=== PATIENT | male | born 1965 | race African-American/Black ===

== ENCOUNTER 2018-04-15 13:35 | Inpatient (IN) | payer OTHER ==
[2018-04-15] MEDS ORDERED: ASPIRIN 81 MG TABLET, CHEWABLE PO ONE ×2 (14:16→15:16)
--- NOTE | 2018-04-15 14:40 | RADIOLOGY REPORT (SQ) ---
EXAM DESCRIPTION: CHEST SINGLE VIEW COMPLETED DATE/TIME: 04/15/2018 2:31 pm REASON FOR STUDY: cp COMPARISON: 11/15/2014 EXAM PARAMETERS: NUMBER OF VIEWS: One view. TECHNIQUE: Single frontal radiographic view of the chest acquired. RADIATION DOSE: NA LIMITATIONS: None. FINDINGS: LUNGS AND PLEURA: No opacities, masses or pneumothorax. No pleural effusion. MEDIASTINUM AND HILAR STRUCTURES: No masses. Contour normal. HEART AND VASCULAR STRUCTURES: Heart normal in size. Normal vasculature. BONES: No acute findings. HARDWARE: None in the chest. OTHER: No other significant finding. IMPRESSION: NO ACUTE RADIOGRAPHIC FINDING IN THE CHEST. TECHNICAL DOCUMENTATION: JOB ID: [id number] [employer]- All Rights Reserved Reading location - IP/workstation name: [email or web address]
[2018-04-15 14:53] LABS: ABSOLUTE EOSINOPHILS # (AUTO) 0.3 10^3/uL (0.0-0.6); ABSOLUTE LYMPHOCYTES (AUTO) 2.6 10^3/uL (0.5-4.7); ABSOLUTE MONOCYTES (AUTO) 0.9 10^3/uL (0.1-1.4); ABSOLUTE NEUT (AUTO) 4.5 10^3/uL (1.7-8.2); BASOPHILS % (AUTO) 0.3 % (0-2); EOSINOPHILS % (AUTO) 3.2 % (0-6); HEMATOCRIT 41.4 % (37.9-51.0); HEMOGLOBIN 14.2 g/dL (13.5-17.0); LYMPHOCYTES % (AUTO) 31.2 % (13-45); MEAN CORPUSCULAR HGB CONC 34.4 g/dL (32.0-36.0); MEAN CORPUSCULAR VOLUME 84 fl (80-97); MONOCYTES % (AUTO) 11.2 % (3-13); PLATELET COUNT 377 10^3/uL (150-450); RED BLOOD COUNT 4.91 10^6/uL (4.35-5.55); RED CELL DISTRIBUTION WIDTH 14.1 % (11.5-14.0); SEGMENTED NEUTROPHILS % (AUTO) 54.1 % (42-78); TOTAL CELLS COUNTED % (AUTO) 100 %; WHITE BLOOD COUNT 8.4 10^3/uL (4.0-10.5)
[2018-04-15 15:10] LABS: ALANINE AMINOTRANSFERASE 35 U/L (21-72); ALBUMIN 4.6 g/dL (3.5-5.0); ALKALINE PHOSPHATASE 56 U/L (38-126); ANION GAP 15 (5-19); ASPARTATE AMINO TRANSFERASE 33 U/L (17-59); BILIRUBIN,DIRECT 0.2 mg/dL (0.0-0.4); BILIRUBIN,TOTAL 0.4 mg/dL (0.2-1.3); BLOOD UREA NITROGEN 10 mg/dL (7-20); CALCIUM 9.8 mg/dL (8.4-10.2); CARBON DIOXIDE 28 mmol/L (22-30); CHLORIDE 102 mmol/L (98-107); CREATINE KINASE 341 U/L (55-170); GLUCOSE 105 mg/dL (75-110); POTASSIUM 5.2 mmol/L (3.6-5.0); SODIUM 145.4 mmol/L (137-145); TOTAL PROTEIN 8.1 g/dL (6.3-8.2)
[2018-04-15 15:20] LABS: CREATINE KINASE MB 2.23 ng/mL (<4.55); TROPONIN I < 0.012 ng/mL
--- NOTE | 2018-04-15 15:30 | ER Document Report ---
ED General - General Chief Complaint: Chest Pain Stated Complaint: CHEST PAIN Time Seen by Provider: 04/15/18 15:06 Mode of Arrival: Ambulatory Information source: Patient Notes: 52-year-old male with hypertension, type 2 diabetes presents with complaint of chest discomfort, shortness of breath and diaphoresis. 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 Patient states the pain has been bearable, persistent. is at the bedside and states that they were out shopping earlier today when the patient turned toward her and asked her to check and see if he had a temperature. reports that the patient was diaphoretic. He does admit to having that pain at that time. Patient denies previous history of NH, atrial fibrillation. He does not smoke drink or do drugs. Patient's last stress test was 3 years ago which she reports was normal. Patient's drafting technician is Dr. Reddy TRAVEL OUTSIDE OF THE [place] IN LAST 30 DAYS: No - HPI Onset: Other Onset/Duration: Intermittent Quality of pain: Achy Associated symptoms: Chest pain, Shortness of breath, Sweating. denies: Chills , Nonproductive cough, Productive cough, Fever, Headache, Leg swelling, Nausea Exacerbated by: Denies Relieved by: Denies Similar symptoms previously: No Recently seen / treated by doctor: No - Related Data Allergies/Adverse Reactions: No Known Allergies Allergy (Verified 04/15/18 13:35) Past Medical History - General Information source: Patient - Social History Smoking Status: Never Smoker Chew tobacco use (# tins/day): No Frequency of alcohol use: None Drug Abuse: None Lives with: Spouse/Significant other Family History: Reviewed & Not Pertinent Patient has suicidal ideation: No Patient has homicidal ideation: No - Past Medical History Cardiac Medical History: Reports: Hx Hypertension Denies: Hx Coronary Artery Disease, Hx Heart Attack Pulmonary Medical History: Denies: Hx Asthma, Hx Bronchitis, Hx COPD, Hx Pneumonia Neurological Medical History: Denies: Hx Cerebrovascular Accident, Hx Seizures Endocrine Medical History: Reports: Hx Diabetes Mellitus Type 2 Renal/ Medical History: Reports: Hx Kidney Stones. Denies: Hx Peritoneal Dialysis Musculoskeletal Medical History: Denies Hx Arthritis Past Surgical History: Reports: Hx Abdominal Surgery - hernia repair, Hx Herniorrhaphy - Immunizations Immunizations up to date: No Hx Diphtheria, Pertussis, Tetanus Vaccination: Yes - Not positive Review of Systems - Review of Systems Notes: REVIEW OF SYSTEMS: CONSTITUTIONAL : Denies fever, chills. Denies recent illness. Denies weight loss, recent hospitalizations. EENT: Denies visual changes, eye pain. Denies sore throat, oral lesions, difficulty swallowing. CARDIOVASCULAR: Denies lower extremity edema. RESPIRATORY: Denies cough. wheezing. GASTROINTESTINAL: Denies abdominal pain or distention. Denies nausea, vomiting , or diarrhea. Denies blood in vomitus, stools, or per rectum. Denies black, tarry stools. Denies constipation. GENITOURINARY: Denies difficulty urinating, painful urination, frequency, blood in urine, testicular pain or penile discharge. MUSCULOSKELETAL: Denies back or neck pain or stiffness. Denies joint pain or swelling. SKIN: Denies rash, lesions or sores. HEMATOLOGIC : Denies easy bruising or bleeding. LYMPHATIC: Denies swollen glands. NEUROLOGICAL: Denies confusion or altered mental status. Denies loss of consciousness. Denies dizziness or lightheadedness. Denies headache. Denies weakness or paralysis. Denies problems difficulty with ambulation, slurred speech. Denies sensory loss, numbness, or tingling. Denies seizures. PSYCHIATRIC: Denies anxiety or stress. Denies depression, suicidal ideation, or Physical Exam - Vital signs Vitals: Temp Pulse Resp BP Pulse Ox 98.1 F 70 20 157/71 H 100 04/15/18 13:44 04/15/18 13:44 04/15/18 13:44 04/15/18 13:44 04/15/18 13:44 - Notes Notes: PHYSICAL EXAMINATION: GENERAL: Well-appearing, well-nourished and in no acute distress. HEAD: Atraumatic, normocephalic. EYES: Pupils equal round and reactive to light, extraocular movements intact, sclera anicteric, conjunctiva are normal. ENT: Nares patent, oropharynx clear without exudates. Moist mucous membranes. NECK: Normal range of motion, supple without lymphadenopathy LUNGS: Breath sounds clear to auscultation bilaterally and equal. No wheezes rales or rhonchi. HEART: Tachycardic, regular rhythm. ABDOMEN: Soft, nontender, nondistended abdomen. No guarding, no rebound. No masses appreciated. Musculoskeletal: Normal range of motion, no pitting or edema. No cyanosis. NEUROLOGICAL: Cranial nerves grossly intact. Normal speech, normal gait. Normal sensory, motor exams PSYCH: Normal mood, normal affect. SKIN: Warm, Dry, normal turgor, no rashes or lesions noted. Course - Re-evaluation Re-evalutation: Laboratory 04/15/18 04/15/18 04/15/18 14:23 14:23 14:23 WBC 8.4 RBC 4.91 Hgb 14.2 Hct 41.4 MCV 84 MCH 29.0 MCHC 34.4 RDW 14.1 H Plt Count 377 Seg Neutrophils % 54.1 Lymphocytes % 31.2 Monocytes % 11.2 Eosinophils % 3.2 Basophils % 0.3 Absolute Neutrophils 4.5 Absolute Lymphocytes 2.6 Absolute Monocytes 0.9 Absolute Eosinophils 0.3 Absolute Basophils 0.0 Sodium 145.4 H Potassium 5.2 H Chloride 102 Carbon Dioxide 28 Anion Gap 15 BUN 10 Creatinine 0.71 Est GFR ( Amer) > 60 Est GFR (Non-Af Amer) > 60 Glucose 105 Calcium 9.8 Magnesium Total Bilirubin 0.4 Direct Bilirubin 0.2 Neonat Total Bilirubin Not Reportable Neonat Direct Bilirubin Not Reportable Neonat Indirect Bili Not Reportable AST 33 ALT 35 Alkaline Phosphatase 56 Creatine Kinase 341 H CK-MB (CK-2) 2.23 Troponin I < 0.012 NT-Pro-B Natriuret Pep Total Protein 8.1 Albumin 4.6 04/15/18 04/15/18 14:23 14:23 WBC RBC Hgb Hct MCV MCH MCHC RDW Plt Count Seg Neutrophils % Lymphocytes % Monocytes % Eosinophils % Basophils % Absolute Neutrophils Absolute Lymphocytes Absolute Monocytes Absolute Eosinophils Absolute Basophils Sodium Potassium Chloride Carbon Dioxide Anion Gap BUN Creatinine Est GFR ( Amer) Est GFR (Non-Af Amer) Glucose Calcium Magnesium 1.9 Total Bilirubin Direct Bilirubin Neonat Total Bilirubin Neonat Direct Bilirubin Neonat Indirect Bili AST ALT Alkaline Phosphatase Creatine Kinase CK-MB (CK-2) Troponin I NT-Pro-B Natriuret Pep 681 Total Protein Albumin Chest X-Ray 04/15/18 14:16 IMPRESSION: NO ACUTE RADIOGRAPHIC FINDING IN THE CHEST. 04/15/18 16:39 52-year-old male with hypertension and diabetes presents with chest pain, palpitation and diaphoresis. Upon arrival vitals were reviewed. Patient has fluctuating heart rate that varies from 90-140. He is afebrile, mildly hypertensive. He is in no acute distress. Exam is significant for an irregular rhythm. EKG shows atrial fibrillation. This is a new diagnosis for the patient. CBC is without leukocytosis or anemia. Cardiac enzymes within normal limits. CMP shows mild elevation in his sodium and potassium. Beta- ivsh was not administered due to the patient's varying heart rate. Currently patient's heart rate is 97. Aspirin administered. Echocardiogram ordered and pending. Cardiology consult placed. Patient has been accepted for observation by the hospitalist. - Vital Signs Vital signs: Temp Pulse Resp BP Pulse Ox 98.1 F 70 20 157/71 H 97 04/15/18 13:44 04/15/18 13:44 04/15/18 13:44 04/15/18 13:44 04/15/18 14:20 - Laboratory Result Diagrams: 04/15/18 14:23 04/15/18 14:23 Laboratory results interpreted by me: 04/15/18 04/15/18 14:23 14:23 RDW 14.1 H Sodium 145.4 H Potassium 5.2 H Creatine Kinase 341 H - Diagnostic Test Radiology reviewed: Image reviewed, Reports reviewed - EKG Interpretation by Me Rate: Normal Rhythm: A.Fib When compared to previous EKG there are: Changes noted Discharge - Discharge Clinical Impression: New onset atrial fibrillation, Palpitations Hypertension Qualifiers: Hypertension type: unspecified Qualified Code(s): I10 - Essential (primary) hypertension Type 2 diabetes mellitus Qualifiers: Diabetes mellitus detention insulin use: without detention use Diabetes mellitus complication status: without complication Qualified Code(s): E11.9 - Type 2 diabetes mellitus without complications Condition: Good Disposition: ADMITTED OBSERVATION Admitting Provider: Hospitalist Unit Admitted: Telemetry
[2018-04-15] MEDS ORDERED: ACETAMINOPHEN 325 MG TABLET PO PRN (16:27)
[2018-04-15] MEDS ORDERED: GUAIFENESIN SYRP 200 MG/10 ML UDC PO PRN (16:27)
[2018-04-15 16:49] LABS: CHOLESTEROL 189.68 mg/dL (0-200); TRIGLYCERIDES 63 mg/dL (<150)
[2018-04-15 17:00] LABS: DIRECT LDL 138 mg/dL (<100)
[2018-04-15 17:06] LABS: FREE T3 4.35 pg/mL (2.77-5.27)
[2018-04-15 17:20] LABS: THYROID STIMULATING HORMONE 1.48 uIU/mL (0.47-4.68)
--- NOTE | 2018-04-15 17:29 | PDOC CONSULTATION ---
Consultation Consult Date: 04/15/18 Consult reason:: New onset atrial fibrillation History of Present Illness Admission Date/PCP: 04/15/18 16:21 ALMA ROSA SOLIMAN MD Patient complains of: Palpitations History of Present Illness: CED AYALA is a 52 year old male With past medical history of hypertension, diabetes mellitus on metformin therapy per patient, morbid obesity with sleep apnea on CPAP therapy comes with complaints of on and off chest discomfort with uneasy feeling in the chest over the last 2-3 days along with exertional shortness of breath. Patient denies any dizziness or passing out episodes but has felt like his heart is not beating regularly. He gives history of sleep apnea and admits to not always being compliant with CPAP use. He claims that recently they came back from a road trip to [facility] and over the last 3 days he has not felt good. Denies any swelling of legs or any fever or chills or any recent heat or cold intolerance. He denies any history of bleeding per rectum or black stools. He denies history of cigarette smoking or alcohol abuse. He is and lives with his . He denies any family history of early age coronary artery disease. He has seen Dr. Reddy in the past and had a stress test more than 3 years ago which was negative for ischemia. Past Medical History Cardiac Medical History: Reports: Hypertension, Other - Morbid obesity Denies: Coronary Artery Disease, Myocardial Infarction Pulmonary Medical History: Reports: Sleep Apnea Denies: Asthma, Bronchitis, Chronic Obstructive Pulmonary Disease (COPD), Pneumonia EENT Medical History: Reports: None Neurological Medical History: Reports: None Denies: Seizures Endocrine Medical History: Reports: Diabetes Mellitus Type 2 Renal/ Medical History: Reports: None Malignancy Medical History: Reports: None GI Medical History: Reports: None Musculoskeltal Medical History: Reports: None Denies: Arthritis Skin Medical History: Reports: None Psychiatric Medical History: Reports: None Traumatic Medical History: Reports: None Hematology: Reports: None Denies: Anemia Infectious Medical History: Reports: None Past Surgical History Past Surgical History: Reports: Herniorrhaphy Social History Lives with: Spouse/Significant other Smoking Status: Never Smoker Family History Family History: Reviewed & Not Pertinent Parental Family History Reviewed: Yes - No early age CAD Children Family History Reviewed: Unknown Sibling(s) Family History Reviewed.: Yes Medication/Allergy Home Medications: Aspirin [Aspirin 81 mg Chewable Tablet] 81 mg PO DAILY 12/16/13 Benazepril HCl [Lotensin 20 mg Tablet] 20 mg PO DAILY 11/15/14 Metformin HCl [Glucophage XR 500 mg Tablet] 500 mg PO DAILY 04/15/18 [place]-3 Fatty Acids/Fish Oil [Fish Oil 1,000 mg Capsule] 1 cap PO DAILY Allergies/Adverse Reactions: No Known Allergies Allergy (Verified 04/15/18 13:35) Review of Systems Constitutional: ABSENT: chills, fever(s), headache(s), weight gain, weight loss Eyes: ABSENT: visual disturbances Ears: ABSENT: hearing changes Cardiovascular: PRESENT: other - Chest discomfort. ABSENT: chest pain, dyspnea on exertion, edema, orthropnea, palpitations Respiratory: PRESENT: dyspnea. ABSENT: cough, hemoptysis Gastrointestinal: ABSENT: abdominal pain, constipation, diarrhea, hematemesis, hematochezia, nausea, vomiting Genitourinary: ABSENT: dysuria, hematuria Musculoskeletal: ABSENT: joint swelling Integumentary: PRESENT: diaphoresis. ABSENT: rash, wounds Neurological: ABSENT: abnormal gait, abnormal speech, confusion, dizziness, focal weakness, syncope Psychiatric: ABSENT: anxiety, depression, homidical ideation, suicidal ideation Endocrine: ABSENT: cold intolerance, heat intolerance, polydipsia, polyuria Hematologic/Lymphatic: ABSENT: easy bleeding, easy bruising Physical Exam Vital Signs: Temp Pulse Resp BP Pulse Ox 98 F 70 15 139/75 H 99 04/15/18 17:15 04/15/18 13:44 04/15/18 17:00 04/15/18 17:01 04/15/18 17:00 General appearance: PRESENT: no acute distress Head exam: PRESENT: atraumatic, normocephalic Cardiovascular exam: PRESENT: irregular rhythm, other - Obese chest wall Extremities exam: PRESENT: full ROM. ABSENT: calf tenderness, clubbing, pedal edema Musculoskeletal exam: PRESENT: ambulatory Neurological exam: PRESENT: alert, awake, oriented to person, oriented to place , oriented to time, oriented to situation, CN II-XII grossly intact. ABSENT: motor sensory deficit Psychiatric exam: PRESENT: appropriate affect, normal mood. ABSENT: homicidal ideation, suicidal ideation Results EKG Comments: Atrial fibrillation with intermittent PVCs. Impressions: Chest X-Ray 12/08/18 14:16 IMPRESSION: NO ACUTE RADIOGRAPHIC FINDING IN THE CHEST. Status: Image reviewed by me Assessment & Plan - Diagnosis (1) New onset atrial fibrillation Is this a current diagnosis for this admission?: Yes (2) Hypertension Qualifiers: Hypertension type: unspecified Qualified Code(s): I10 - Essential (primary ) hypertension Is this a current diagnosis for this admission?: Yes (3) Type 2 diabetes mellitus Qualifiers: Diabetes mellitus terminal press operator insulin use: without terminal press operator use Diabetes mellitus complication status: without complication Qualified Code(s): E11.9 - Type 2 diabetes mellitus without complications (4) Morbid obesity Is this a current diagnosis for this admission?: Yes (6) Chest discomfort Is this a current diagnosis for this admission?: Yes - Notes Notes: Patient appears euvolemic on exam with blood pressure well controlled at this time. We discussed etiopathogenesis, treatment modalities, complications and medical therapy use for atrial fibrillation in detail with the patient and his . At this point of time his chads 2 VASC score is 2 because of diabetes mellitus and hypertension and according to guidelines recommendation is for systemic anticoagulation and we have discussed options with the patient including warfarin therapy versus NOACs. Also patient has multiple risk factors for atherosclerotic cardiovascular disease and should have ischemia evaluation once acute coronary syndrome is ruled out by serial cardiac enzymes. We do recommend an echocardiogram to evaluate systolic and diastolic function. We discussed at length need for lifestyle modifications including weight loss and regular use of CPAP therapy. Agree with beta-vish for rate control and will recommend checking fasting lipid panel and statin therapy for risk factor reduction if indicated. Recommend institution of NOAC therapy and Dr. Reddy will take over cardiology workup for ischemia and management of atrial fibrillation from Tuesday onwards. We discussed risk/benefit of systemic anticoagulants with the patient and his . - Time Time Spent: 50 to 70 Minutes
[2018-04-15] MEDS: FAMOTIDINE 20 MG TABLET PO SCH (21:32)
[2018-04-15] MEDS: METOPROLOL TARTRATE 25 MG TABLET PO SCH (21:32)
[2018-04-15 22:55] LABS: APPEARANCE,URINE CLEAR; BILIRUBIN,URINE NEGATIVE (NEGATIVE); COLOR,URINE YELLOW; GLUCOSE, URINE NEGATIVE (NEGATIVE); KETONES,URINE NEGATIVE (NEGATIVE); LEUKOCYTE ESTERASE,URINE NEGATIVE (NEGATIVE); NITRITE,URINE NEGATIVE (NEGATIVE); PROTEIN,URINE NEGATIVE (NEGATIVE); URINE SPECIFIC GRAVITY 1.015
[2018-04-15 23:09] LABS: URINE AMPHETAMINES SCREEN NEGATIVE; URINE BARBITURATES SCREEN NEGATIVE; URINE BENZODIAZEPINES SCREEN NEGATIVE; URINE COCAINE SCREEN NEGATIVE; URINE MARIJUANA (THC) SCREEN NEGATIVE; URINE METHADONE SCREEN NEGATIVE; URINE PHENCYCLIDINE SCREEN NEGATIVE
[2018-04-16 05:15] LABS: HEMATOCRIT 40.1 % (37.9-51.0); HEMOGLOBIN 13.7 g/dL (13.5-17.0); MEAN CORPUSCULAR HEMOGLOBIN 28.5 pg (27.0-33.4); MEAN CORPUSCULAR VOLUME 84 fl (80-97); PLATELET COUNT 353 10^3/uL (150-450); RED CELL DISTRIBUTION WIDTH 14.3 % (11.5-14.0); WHITE BLOOD COUNT 8.7 10^3/uL (4.0-10.5)
[2018-04-16 05:34] LABS: ALANINE AMINOTRANSFERASE 33 U/L (21-72); ALKALINE PHOSPHATASE 50 U/L (38-126); ANION GAP 11 (5-19); ASPARTATE AMINO TRANSFERASE 27 U/L (17-59); BILIRUBIN,DIRECT 0.2 mg/dL (0.0-0.4); BILIRUBIN,TOTAL 0.5 mg/dL (0.2-1.3); BLOOD UREA NITROGEN 12 mg/dL (7-20); CALCIUM 9.4 mg/dL (8.4-10.2); CARBON DIOXIDE 28 mmol/L (22-30); CHLORIDE 101 mmol/L (98-107); GLUCOSE 99 mg/dL (75-110); POTASSIUM 5.1 mmol/L (3.6-5.0); SODIUM 140.3 mmol/L (137-145); TOTAL PROTEIN 7.2 g/dL (6.3-8.2)
--- NOTE | 2018-04-16 08:31 | XCELERA REPORT ---
[address] [address] Transthoracic Echocardiogram Report Name: CED AYALA Age: 52 yrs Gender: Male : 1965 Patient Status: Inpatient Patient Location: [address] [place] [address] Study Date: 04/15/2018 07:14 PM Reason For Study: New onset A. fib Ordering Physician: KATIE TO Performed By: Steven Ellis Interpretation Summary Study quality suboptimal. Lack of contrast ehnancement limits evaluation of wall motion, chambers and to rule out any intracardiac thrombus. LVEF appears normal at 55-60% by visual estimation. RV size and systolic function appears nromal. Doppler data inadequate for diatology evaluation. 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 Doppler data provided does not suggest any significant aortic stenosis. The aortic root is normal size. The inferior vena cava appeared small and collapsed with respiration (RAP 0-5 mmHg) MMode/2D Measurements & Calculations RVDd: 2.6 cm LVIDd: 5.9 cm FS: 25.7 % Ao root diam: 3.4 cm IVSd: 0.79 cm LVIDs: 4.4 cm EDV(Teich): 174.5 ml Ao root area: 8.9 cm2 LVPWd: 1.1 cm ESV(Teich): 87.6 ml LA dimension: 4.9 cm EF(Teich): 49.8 % LVOT diam: 2.1 cm LVOT area: 3.5 cm2 Doppler Measurements & Calculations MV E max nisa: MV P1/2t max nisa: Ao V2 max: LV V1 max P.4 cm/sec 89.2 cm/sec 151.3 cm/sec 5.9 mmHg MV A max nisa: MV P1/2t: 52.6 msec Ao max PG: LV V1 max: 49.9 cm/sec 9.2 mmHg 121.9 cm/sec MV E/A: 1.7 MVA(P1/2t): 4.2 cm2 MV dec slope: LESLEY(V,D): 2.8 cm2 496.7 cm/sec2 MV dec time: 0.18 sec PA V2 max: MV P1/2t-pr_phl: 107.0 cm/sec 52.6 msec PA max P.6 mmHg Right Ventricle A moderator band is seen in the right ventricle. The right ventricular systolic function is normal. Atria Right atrium not well visualized secondary to technical limitations. The left atrium is not well visualized secondary to technical limitations. Mitral Valve MV leaflets not well visualized but apprear to open well. Aortic Valve The aortic valve is not well visualized secondary to technical limitations. 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 There is a peak gradient of 9 mm of Hg. Tricuspid Valve The tricuspid valve is not well visualized secondary to technical limitations. Tricuspid regurgitation jet envelope not well defined to measure RV systolic pressure accurately. RVSP could not be estimated. Pulmonic Valve The pulmonic valve is not well visualized. Great Vessels The aortic root is normal size. The inferior vena cava appeared small and collapsed with respiration (RAP 0-5 mmHg). Effusions Pericardium not well visualized but no obvious pericardial effusion noted in available acoustic images. : KATIE TO Sanjay
--- NOTE | 2018-04-16 09:44 | PDOC PROGRESS REPORT ---
Subjective Progress Note for:: 04/16/18 Subjective:: Patient feels better today with no complaints of chest pain or dizziness. Reason For Visit: A-FIB Patient admitted last night with new onset atrial fibrillation. Patient seen at bedside today and denies any chest pain or palpitations or dizziness. Physical Exam Vital Signs: Temp Pulse Resp BP Pulse Ox 97.9 F 77 17 110/56 L 98 04/16/18 07:47 04/16/18 07:47 04/16/18 07:47 04/16/18 07:47 04/16/18 07:47 Intake & Output 04/15/18 04/16/18 04/17/18 06:59 06:59 06:59 Weight 139.4 kg General appearance: PRESENT: no acute distress Head exam: PRESENT: atraumatic, normocephalic Eye exam: PRESENT: conjunctiva pink, EOMI, PERRLA. ABSENT: scleral icterus Ear exam: PRESENT: normal external ear exam Mouth exam: PRESENT: moist, tongue midline Neck exam: ABSENT: carotid bruit, JVD, lymphadenopathy, thyromegaly Respiratory exam: PRESENT: clear to auscultation lazara. ABSENT: rales, rhonchi, wheezes Cardiovascular exam: PRESENT: irregular rhythm Pulses: PRESENT: normal dorsalis pedis pul GI/Abdominal exam: PRESENT: normal bowel sounds, soft. ABSENT: distended, guarding, mass, organolmegaly, rebound, tenderness Rectal exam: PRESENT: deferred Extremities exam: PRESENT: full ROM. ABSENT: calf tenderness, clubbing, pedal edema Musculoskeletal exam: PRESENT: ambulatory Neurological exam: PRESENT: alert, awake, oriented to person, oriented to place , oriented to time, oriented to situation, CN II-XII grossly intact. ABSENT: motor sensory deficit Psychiatric exam: PRESENT: appropriate affect, normal mood. ABSENT: homicidal ideation, suicidal ideation Skin exam: PRESENT: dry, intact, warm. ABSENT: cyanosis, rash Results Laboratory Results: 04/16/18 03:56 04/16/18 03:56 04/15/18 04/16/18 04/16/18 22:40 03:56 03:56 WBC 8.7 RBC 4.80 Hgb 13.7 Hct 40.1 MCV 84 MCH 28.5 MCHC 34.0 RDW 14.3 H Plt Count 353 Sodium 140.3 Potassium 5.1 H Chloride 101 Carbon Dioxide 28 Anion Gap 11 BUN 12 Creatinine 0.81 Est GFR ( Amer) > 60 Est GFR (Non-Af Amer) > 60 Glucose 99 Calcium 9.4 Total Bilirubin 0.5 AST 27 ALT 33 Alkaline Phosphatase 50 Total Protein 7.2 Albumin 4.0 Urine Color YELLOW Urine Appearance CLEAR Urine pH 7.0 Ur Specific [place] 1.015 Urine Protein NEGATIVE Urine Glucose (UA) NEGATIVE Urine Ketones NEGATIVE Urine Blood NEGATIVE Urine Nitrite NEGATIVE Ur Leukocyte Esterase NEGATIVE Urine WBC (Auto) 0 Urine RBC (Auto) 1 04/15/18 04/16/18 19:09 03:50 CK-MB (CK-2) 1.41 Troponin I < 0.012 Impressions: Chest X-Ray 04/15/18 14:16 IMPRESSION: NO ACUTE RADIOGRAPHIC FINDING IN THE CHEST. Assessment & Plan - Diagnosis (1) New onset atrial fibrillation Is this a current diagnosis for this admission?: Yes (2) Hypertension Qualifiers: Hypertension type: unspecified Qualified Code(s): I10 - Essential (primary ) hypertension Is this a current diagnosis for this admission?: Yes (3) Type 2 diabetes mellitus Qualifiers: Diabetes mellitus chief safety officer insulin use: without correction use Diabetes mellitus complication status: without complication Qualified Code(s): E11.9 - Type 2 diabetes mellitus without complications (4) Morbid obesity Is this a current diagnosis for this admission?: Yes (6) Chest discomfort Is this a current diagnosis for this admission?: Yes - Notes Notes: Reviewed labs, telemetry and echocardiogram. Patient with preserved LV ejection fraction but detailed evaluation limited due to suboptimal/poor caustic images. On his lab work patient has a hemoglobin A1c of 5.8 which is very well controlled and does not go in favor of his diagnosis of diabetes mellitus. In the absence of diabetes his chads 2 VASC score is 1 at which he can be on aspirin alone versus systemic anticoagulation. We again discussed the risks/benefits of either approach. On his telemetry he has stayed in atrial fibrillation all night with both tachyarrhythmias with heart rates going above 120 bpm and bradyarrhythmias with some sinus pauses up to 2.2 seconds. Some short runs of nonsustained ventricular tachycardia also noted which could also represent rate related aberrancy. Plan is for Lexiscan nuclear stress test tomorrow to rule out any inducible perfusion defects to suggest ischemia. Dr. Reddy is going to assume charge of patient's cardiac management from tomorrow onwards and patient will discuss long-term anticoagulation with him. Continue on beta-vish therapy for rate control at this time. Consider statin therapy for risk factor reduction. Patient urged to change lifestyle and try and lose weight. - Time Time with patient: 15-25 minutes
[2018-04-16] MEDS: ASPIRIN 325 MG TABLET PO SCH (10:40)
[2018-04-16] MEDS: FAMOTIDINE 20 MG TABLET PO SCH ×2 (10:40→21:40)
[2018-04-16] MEDS: ENOXAPARIN SODIUM INJ 40 MG/0.4 ML DISP.SYRIN SUBCUT SCH (10:40)
[2018-04-16] MEDS: METOPROLOL TARTRATE 25 MG TABLET PO SCH ×2 (10:40→21:40)
--- NOTE | 2018-04-16 10:46 | EKG REPORT ---
SEVERITY:- ABNORMAL ECG - ATRIAL FIBRILLATION VENTRICULAR TRIGEMINY ABNORMAL T, CONSIDER ISCHEMIA, DIFFUSE LEADS : Confirmed by: Joe Monahan 16-Apr-2018 10:44:13
--- NOTE | 2018-04-16 11:47 | HISTORY AND PHYSICAL E ---
History and Physical NAME: CED AYALA : 1965 AGE: 52Y ADMITTED: 04/15/2018 ROOM: 532 CHIEF COMPLAINT: Not feeling well. HISTORY OF PRESENT ILLNESS: The patient is a pleasant 52-year-old male who has a past medical history of hypertension. The patient is taking benazepril for hypertension. He has hypertension for many years. He came to the emergency room with a chief complaint of not feeling well, palpitation. He was found to have atrial fibrillation which is new onset and his heart rate is running 70-115. He denies any chest pain or difficulty breathing. There is no nausea or vomiting or headache. REVIEW OF SYSTEMS: GENERAL: Patient denies and fever or chills. HEAD: No headache. EYES: No discharge from the eyes or redness of the eyes. EARS: He has no tinnitus, no vertigo. NECK: There is no pain or difficulty swallowing. RESPIRATORY: No cough. No wheezing. No hemoptysis. CARDIOVASCULAR: As in history of present illness. GASTROINTESTINAL: No nausea, no vomiting, no diarrhea, no constipation. GENITOURINARY: No urgency, no frequency, no dysuria, no hematuria. ENDOCRINE: No polyuria, polyphagia, polydipsia. HEMATOLOGIC: No significant anemia. No easy bruising. NEUROLOGIC: No seizures. PSYCHIATRIC: No depression. PAST MEDICAL HISTORY: Hypertension. PAST SURGICAL HISTORY: The patient had a lithotripsy for a stone and a stent placement. He has a history of hernia repair. Oral surgery. SOCIAL HISTORY: Never smoker or drinks. HOME MEDICATIONS: 1. Benazepril 20 mg daily. 2. Aspirin 81 mg daily. 3. Metformin 500 mg twice a day. 4. Flomax. PHYSICAL EXAMINATION: GENERAL: Patient lying in bed. Not in distress. VITAL SIGNS: Blood pressure 159/71, temperature 98.1, respiratory 20, saturation 100%. HEENT: Normocephalic, atraumatic. Pupils equal, round, reactive to light and accommodation bilaterally. Extraocular movements intact. Ears: Tympanic membranes intact bilaterally. No discharge from the ears. No discharge from the nose. NECK: Supple. No increased JVD. No thyromegaly. No lymphadenopathy. CARDIOVASCULAR: Normal S1, S2. Irregularly irregular. RESPIRATORY: Lungs clear. ABDOMEN: Soft. MUSCULOSKELETAL: No edema. NEUROLOGICAL: Awake, alert. SKIN: No rash. LABORATORY DATA: Sodium 145, potassium 5.2, creatinine 0.7. White blood count 8.4, hemoglobin 14.2, hematocrit is 41. ASSESSMENT: 1. NEW ONSET ATRIAL FIBRILLATION. 2. HYPERTENSION. 3. OBSTRUCTIVE SLEEP APNEA. 4. MORBID OBESITY. 5. HYPERLIPIDEMIA. 6. DIABETES TYPE 2. 7. HISTORY OF KIDNEY STONE. PLAN: 1. Patient will be admitted for observation. 2. Will get a series of cardiac enzymes. 3. Cardiology consulted. 4. Dr. Pastor saw the patient in ER. 5. Will put him on aspirin, metoprolol 25 twice a day. 6. Continue his home medication, benazepril. 7. Probably a stress test on Tuesday by Dr. Reddy who is his digital forensics examiner. 8. DVT prophylaxis. 9. GI prophylaxis. 10. Will get hemoglobin A1c. 11. Metformin 500 mg twice a day. 12. Aspirin. DIET: Cardiac diet. CODE STATUS: He is a FULL CODE. DICTATING PHYSICIAN: VITALIY EASON M.D. [id number] PHY#: [id number] ID: [id number] JOB#: [id number] ACCT: [id number] cc: >
--- NOTE | 2018-04-16 11:54 | PDOC PROGRESS REPORT ---
Subjective Progress Note for:: 04/16/18 Subjective:: Patient is 50-year-old male who has a history of hypertension, questionable diabetes, obesity. He was admitted with a new onset atrial fibrillation. He was started on full dose anticoagulation and metoprol . Feeling better today no chest pain or short of breath Reason For Visit: A-FIB Physical Exam Vital Signs: Temp Pulse Resp BP Pulse Ox 97.9 F 77 17 110/56 L 98 04/16/18 07:47 04/16/18 07:47 04/16/18 07:47 04/16/18 07:47 04/16/18 07:47 Intake & Output 04/15/18 04/16/18 04/17/18 06:59 06:59 06:59 Weight 139.4 kg General appearance: PRESENT: no acute distress Head exam: PRESENT: atraumatic, normocephalic Eye exam: PRESENT: PERRLA Neck exam: ABSENT: JVD, lymphadenopathy Respiratory exam: PRESENT: symmetrical Cardiovascular exam: PRESENT: +S1, +S2 Extremities exam: PRESENT: +1 edema, +2 edema. ABSENT: pedal edema Neurological exam: PRESENT: alert, awake Results Laboratory Results: 04/16/18 03:56 04/16/18 03:56 04/15/18 04/16/18 04/16/18 22:40 03:56 03:56 WBC 8.7 RBC 4.80 Hgb 13.7 Hct 40.1 MCV 84 MCH 28.5 MCHC 34.0 RDW 14.3 H Plt Count 353 Sodium 140.3 Potassium 5.1 H Chloride 101 Carbon Dioxide 28 Anion Gap 11 BUN 12 Creatinine 0.81 Est GFR ( Amer) > 60 Est GFR (Non-Af Amer) > 60 Glucose 99 Calcium 9.4 Total Bilirubin 0.5 AST 27 ALT 33 Alkaline Phosphatase 50 Total Protein 7.2 Albumin 4.0 Urine Color YELLOW Urine Appearance CLEAR Urine pH 7.0 Ur Specific [place] 1.015 Urine Protein NEGATIVE Urine Glucose (UA) NEGATIVE Urine Ketones NEGATIVE Urine Blood NEGATIVE Urine Nitrite NEGATIVE Ur Leukocyte Esterase NEGATIVE Urine WBC (Auto) 0 Urine RBC (Auto) 1 04/15/18 04/16/18 19:09 03:50 CK-MB (CK-2) 1.41 Troponin I < 0.012 Impressions: Chest X-Ray 04/15/18 14:16 IMPRESSION: NO ACUTE RADIOGRAPHIC FINDING IN THE CHEST. Assessment & Plan - Diagnosis (1) Chest discomfort Is this a current diagnosis for this admission?: Yes Plan: Pelvic enzymes were negative patient is scheduled for cardiac stress test tomorrow (2) Hypertension Qualifiers: Hypertension type: unspecified Qualified Code(s): I10 - Essential (primary ) hypertension Is this a current diagnosis for this admission?: Yes Plan: Controlled on metoprolol (3) Morbid obesity Is this a current diagnosis for this admission?: Yes (4) New onset atrial fibrillation Is this a current diagnosis for this admission?: Yes Plan: Rate control with metoprolol, on full dose anti-coagulation with Lovenox scheduled for a stress test tomorrow. Dr. Ramirez see him tomorrow (5) Obstructive sleep apnea Is this a current diagnosis for this admission?: Yes Plan: CPAP on night (7) Type 2 diabetes mellitus Qualifiers: Diabetes mellitus gravity prospecting operator insulin use: without gravity prospecting operator use Diabetes mellitus complication status: without complication Qualified Code(s): E11.9 - Type 2 diabetes mellitus without complications Is this a current diagnosis for this admission?: Yes Plan: Metformin is A1c 5.8
--- NOTE | 2018-04-17 11:22 | Physician Advisory Note ---
Physician Advisor ProgressNote .: Pursuant to the plan for [facility], I have reviewed the medical record for this patient. Physician Advisor Statement: Please consider documenting, if you agree: 1. "CP/SOB, suspect due to " (Afib/tachyarrhythmia? angina/CAD? ...) 2. "obesity w/BMI 42.9" (we have to personally state the BMI w/this dx now) STatus: 52yo w/[employer], HTN, obesity w/BMI 42.9, in w/new onset Afib & CP/SOB/diaphoresis. Serial cardiac enzymes now all neg, so can have stress testing today. After first night of care/monitoring, pt still in Afib, w /episodes tachyarrhythmias & bradyarrhythmias, & sinus pauses, & short runs nonsustained VTach (vs rate related aberrancy), kept a 2nd night w/close monitoring & ongoing eval. Needing stress testing today to look for inducible perfusion defects, made more likely given the CP/SOB/diaphoresis that occurred w /Afib just prior to arrival. Monitoring rates/rhythms on BB tx. - In this case, will agree w/Inpt status. CK
[2018-04-17] MEDS: METOPROLOL TARTRATE 25 MG TABLET PO SCH ×2 (11:44→21:22)
[2018-04-17] MEDS: ASPIRIN 325 MG TABLET PO SCH (11:44)
[2018-04-17] MEDS: FAMOTIDINE 20 MG TABLET PO SCH ×2 (11:44→21:22)
[2018-04-17] MEDS: ENOXAPARIN SODIUM INJ 40 MG/0.4 ML DISP.SYRIN SUBCUT SCH (11:45)
[2018-04-17] MEDS ORDERED: DEXTROSE 50%-WATER 25 GM/50 ML DISP.SYRIN IV PRN ×2 (14:25)
[2018-04-17] MEDS ORDERED: INSULIN REG, HUMAN 100 UNIT/ML 3 ML VIAL (PYX) SUBCUT PRN (14:25)
[2018-04-17] MEDS ORDERED: GLUCAGON,HUMAN RECOMB 1 MG INJ IM PRN (14:25)
[2018-04-17] MEDS ORDERED: DEXTROSE 40% GEL 15 GM TUBE PO PRN ×2 (14:25)
--- NOTE | 2018-04-17 14:26 | PDOC PROGRESS REPORT ---
Subjective Progress Note for:: 04/17/18 Subjective:: 04/17/2000 [id number] male admitted for new onset atrial fibrillation. He went for the stress test today. Waiting for the results today. No acute events in the last 24 hours. Reason For Visit: A-FIB Physical Exam Vital Signs: Temp Pulse Resp BP Pulse Ox 98.1 F 82 18 118/54 L 100 04/17/18 08:39 04/17/18 08:39 04/17/18 08:39 04/17/18 08:39 04/17/18 08:39 Intake & Output 04/16/18 04/17/18 04/18/18 06:59 06:59 06:59 Intake Total 1284 Balance 1284 Weight 139.4 kg 139.5 kg 139.5 kg General appearance: PRESENT: no acute distress Head exam: PRESENT: atraumatic Eye exam: PRESENT: PERRLA Mouth exam: PRESENT: moist Neck exam: ABSENT: carotid bruit, JVD, lymphadenopathy, thyromegaly Respiratory exam: PRESENT: clear to auscultation lazara. ABSENT: rales, rhonchi, wheezes Cardiovascular exam: PRESENT: RRR. ABSENT: diastolic murmur, rubs, systolic murmur GI/Abdominal exam: PRESENT: normal bowel sounds, soft. ABSENT: distended, guarding, mass, organolmegaly, rebound, tenderness Neurological exam: PRESENT: alert, awake, oriented to person, oriented to place , oriented to time, oriented to situation, CN II-XII grossly intact. ABSENT: motor sensory deficit Results Laboratory Results: 04/16/18 03:56 04/16/18 03:56 04/15/18 04/16/18 04/17/18 19:09 03:50 06:43 CK-MB (CK-2) 1.41 Troponin I < 0.012 < 0.012 Impressions: Chest X-Ray 04/15/18 14:16 IMPRESSION: NO ACUTE RADIOGRAPHIC FINDING IN THE CHEST. Assessment & Plan - Diagnosis (1) New onset atrial fibrillation Is this a current diagnosis for this admission?: Yes Plan: 04/17/2018 70-year-old male with came with new onset atrial fibrillation evaluated by the [facility] attendant Dr. Morataya recommendation is aspirin all along with beta-blockers will be sufficient enough at this time. She underwent for the stress test today. Since heart rate is 82 to today he is on metoprolol and also on Lovenox,, and also on aspirin. (2) Hypertension Qualifiers: Hypertension type: unspecified Qualified Code(s): I10 - Essential (primary ) hypertension Is this a current diagnosis for this admission?: Yes Plan: 04/17/2018 blood pressure today is 118/54. Stable. Patient is on metoprolol 25 mg p.o. every 12 hours. (3) Morbid obesity Is this a current diagnosis for this admission?: Yes Plan: 04/17/2018-patient's BMI is 43. Diet exercise weight loss was advised. Dietary consult was requested. (4) Obstructive sleep apnea Is this a current diagnosis for this admission?: Yes Plan: 04/17/2018 patient uses CPAP at night for obstructive sleep apnea no complaints during the hospital stay. (5) Type 2 diabetes mellitus Qualifiers: Diabetes mellitus snf insulin use: without manager architectural use Diabetes mellitus complication status: without complication Qualified Code(s): E11.9 - Type 2 diabetes mellitus without complications Is this a current diagnosis for this admission?: Yes Plan: 04/17/2018 patient's hemoglobin A1c is 5.8 he was on metformin at home which was on hold. It is on insulin sliding scale. - Time Time Spent with patient: 15-24 minutes Medications reviewed and adjusted accordingly: Yes Anticipated discharge: Home
[2018-04-17] MEDS ORDERED: REGADENOSON INJ 0.4 MG/5 ML DISP.SYRIN IV ONE (14:43)
--- NOTE | 2018-04-17 17:16 | DRAGON STRESS TEST REPORT ---
Intravenous Lexiscan Cardiolite stress test using single photon emmision computerized tomography. Date of procedure: 04/17/2018.Ordering Provider:Lori Casper.Patient's status: Inpatient. Indication: Chest pain. Coronary risk factors: Age, hypertension, and diabetes mellitus Resting EKG: Atrial fibrillation with controlled ventricular response. LVH by voltage. Diffuse nonspecific ST-T changes Stress EKG: No changes of ischemia. The patient no chest pain or discomfort, and there were no arrhythmias seen. Reason for termination: Protocol. Conclusions: Normal EKG and hemodynamic response to IV Lexiscan. Nuclear data: At rest the patient was given 15.67 millicuries of technetium 99m sestamibi injected intravenously. As per protocol rest non gated SPECT images were obtained. Subsequently the patient was given intravenous Lexiscan at a dose of 0.4 mg in 5 mL intravenously, followed by flush with normal saline. Subsequently the stress dose of 45.6 millicuries of technetium 99m sestamibi was injected intravenously. As per protocol stress gated images were obtained. Nuclear interpretation: Review of images showed that all segments of the myocardium had normal perfusion at rest, and normal perfusion post stress with IV Lexiscan. All segments of the myocardium had normal motion, contraction, and thickening by gated study. T. I D. ratio was normal at 1.23. But visually the T ID ratio seems to be much lower, and there is no transient ischemic LV dilatation. Computer read rest, and stress left ventricular ejection fraction were 56 %, and 50 %, respectively. Visually both the stress and rest ejection fractions were normal , and greater than 55%. Conclusion: 1. There is no scintigraphic evidence of Lexiscan induced myocardial ischemia. 2. There is no scintigraphic evidence of myocardial infarction/scar. Recommendations: Aggressive risk factor modification, and treating the underlying co- morbidities. MTDD
[2018-04-17] MEDS: APIXABAN 5 MG TABLET PO SCH (17:19)
--- NOTE | 2018-04-17 22:03 | Progress Note ---
Provider Note Provider Note: CARDIOLOGY PROGRESS NOTES by Dr. Stacey Reddy on 04/17/2018. OBJECTIVE: The patient continues to be in atrial fibrillation with a controlled ventricular response. He denies any further chest pain. There is no shortness of breath. There is no PND orthopnea. He wears CPAP for his sleep apnea. There is no leg edema. There is no pauses or ventricular arrhythmias on the monitor monitor. The patient's corrected chads vas 6 2 score is 1, and hence would benefit from anticoagulation. He has no contraindications for chronic anticoagulation therapy. Note that the patient's hemoglobin A1c is 5.8. He states that he is not a diabetic, although at home he was on Metformin, which he states he has not been taking. The patient underwent a IV Lexiscan Cardiolite stress test today. See report below. PHYSICAL EXAMINATION: The patient is morbidly obese. He is well-groomed. He is not in any acute distress. Selected Entries 04/17/18 16:52 Temperature 97.6 F Temperature Oral Source Pulse Rate 52 L Respiratory 18 Rate Blood Pressure 114/80 Blood Pressure 91 Mean BP Location Right Arm BP Position Supine O2 Sat by Pulse 99 Oximetry Oxygen Delivery Room Air Method HEAD: Is atraumatic. Normocephalic. EYES: Pupils are equal round regular reactive to light accommodation. Extraocular movements are normal. There is no clinical pallor. There is no scleral icterus. ENT: Is negative. NECK: Is supple. There is no JVD. Carotids are equal there is no carotid bruits. There is no lymphadenopathy. There is no goiter. There is no accessory muscles of respiration use. Trachea central. LUNGS: Clear to auscultation percussion, without any rhonchi rales or wheezing. There is no chest wall tenderness. HEART: S1-S2 is heard. S1 is of variable intensity. There is no S3 gallop. There is no S4 gallop. There is systolic murmur left sternal border and apex, without any significant radiation. There is no rub. ABDOMEN: Is nontender. There is no hepatosplenomegaly. Bowel sounds are well heard. There is no rebound guarding or rigidity. EXTREMITIES: Femorals are deep. Femorals are slightly diminished. There is no femoral bruits. Leg pulses are well felt. There is no pedal edema. There is no DVT or cellulitis. There is no cyanosis or clubbing. There is no calf tenderness. CHRISTMAS TREE GRADER: The patient is conscious awake alert oriented x3 with no focal deficit. PSYCHIATRIC: The patient judgment and insight are intact his affect is normal. 04/17/18 04/17/18 06:43 16:48 POC Glucose 107 Troponin I < 0.012 IV LEXISCAN CARDIOLITE STRESS TEST: The test showed no reversible ischemia. There was no myocardial infarction or scar. 1. Chronic ATRIAL FIBRILLATION: Continue the patient on metoprolol at 25 mg p.o. every 12 hours, this has controlled his heart rate very well. Note the patient has no contraindication for anticoagulation. We will stop the patient' s aspirin, and start the patient Eliquis 5 mg p.o. twice daily. The benefits risks of bleeding complications of Eliquis has been discussed with the patient. He is agreeable. 2. CHEST PAIN: Most likely noncardiac. Note negative Cardiolite stress test. 3. HYPERTENSION: Seems to be well-controlled. Along with the beta blockers would continue patient on Lotensin. 4. DIABETES MELLITUS.: The patient states that he does not have diabetes, and he has not taken metformin at home. Would recommend stopping his antidiabetic medication, and getting a glucose tolerance test as an outpatient. 5. OBSTRUCTIVE SLEEP APNEA: Continue the patient's CPAP therapy. 6. OBESITY: Recommend the patient a diet for reducing weight, and exercise regimen to lose weight. MEDICATIONS reviewed. New medications added. Discussed the management plan with attending physician. The patient desires to follow-up with me in the outpatient. I have discussed with him and his significant other the results of the stress test. Medical decision making is of moderate complexity. 40 minutes spent on this patient more than 50% time spent in direct patient care. The patient is a full code. His is a surrogate healthcare decision maker. We will sign off the case, and follow the patient up in the office.. Thank you for allowing me to participate in the care of this patient.
[2018-04-18] MEDS ORDERED: (PENDING PHARMACY ID) (Omega-3 Fatty Acids/Fish Oil [Fish Oil 1,000 Mg Capsule] 1 CAP) PO SCH (10:00)
[2018-04-18] MEDS ORDERED: BENAZEPRIL HCL 20 MG TABLET PO SCH (10:00)
[2018-04-18] MEDS ORDERED: OMEGA-3 ACID ETHYL ESTERS 1 GM CAPSULE PO SCH (10:00)
[2018-04-18] MEDS: APIXABAN 5 MG TABLET PO SCH (10:03)
[2018-04-18] MEDS: FAMOTIDINE 20 MG TABLET PO SCH (10:04)
[2018-04-18] MEDS: METOPROLOL TARTRATE 25 MG TABLET PO SCH (10:04)
[2018-04-18 14:13] VITALS: BP 122/68
--- NOTE | 2018-04-18 15:05 | PDOC DISCHARGE SUMMARY ---
General - Admit/Disc Date/PCP Admission Date/Primary Care Provider: 04/15/18 16:21 Discharge Date: 04/18/18 - Discharge Diagnosis (1) New onset atrial fibrillation Is this a current diagnosis for this admission?: Yes Summary: 04/17/2018 70-year-old male with came with new onset atrial fibrillation evaluated by the core maker helper Dr. Morataya recommendation is aspirin all along with beta-blockers will be sufficient enough at this time. She underwent for the stress test today. Since heart rate is 82 to today he is on metoprolol and also on Lovenox,, and also on aspirin. 04/18/2018-patient admitted with the new onset atrial fibrillation he still in A. fib.. Stress test was negative. He was started on Eliquis 5 mg p.o. twice daily. As per the core maker helper recommendation be going to withhold his aspirin and advised him to continue his metoprolol along with blood pressure medication he is taking at home. (2) Hypertension Is this a current diagnosis for this admission?: Yes Summary: 04/17/2018 blood pressure today is 118/54. Stable. Patient is on metoprolol 25 mg p.o. every 12 hours. 04/18/2018 patient's blood pressure today is 119/70. With pulse rate of 69 which is a stable toward the hospital course. (3) Morbid obesity Is this a current diagnosis for this admission?: Yes Summary: 04/18/2018 patient's BMI is 43. Diet and exercise weight loss out of advised. Dietary consult was done during the hospital stay. (4) Obstructive sleep apnea Is this a current diagnosis for this admission?: Yes Summary: 04/18/2018-patient uses CPAP at night for obstructive sleep apnea. Advised him to continue the to use the CPAP at home. (5) Type 2 diabetes mellitus Is this a current diagnosis for this admission?: Yes - Additional Information Discharge Diet: As Tolerated Discharge Activity: Activity As Tolerated Prescriptions: Apixaban [Eliquis 5 mg Tablet] 5 mg PO BID #60 tablet Famotidine [Pepcid 20 mg Tablet] 20 mg PO Q12 #30 tablet Metoprolol Tartrate [Lopressor 25 mg Tablet] 25 mg PO Q12 #30 tablet Home Medications: Benazepril HCl [Lotensin 20 mg Tablet] 20 mg PO DAILY 11/15/14 Metformin HCl [Glucophage XR 500 mg Tablet] 500 mg PO DAILY 04/15/18 [place]-3 Fatty Acids/Fish Oil [Fish Oil 1,000 mg Capsule] 1 cap PO DAILY Apixaban [Eliquis 5 mg Tablet] 5 mg PO BID #60 tablet 04/18/18 Famotidine [Pepcid 20 mg Tablet] 20 mg PO Q12 #30 tablet 04/18/18 Metoprolol Tartrate [Lopressor 25 mg Tablet] 25 mg PO Q12 #30 tablet 04/18/18 History of Present Illness History of Present Illness: ECD AYALA is a 52 year old male Hospital Course Hospital Course: With past medical history of hypertension, diabetes mellitus on metformin therapy per patient, morbid obesity with sleep apnea on CPAP therapy comes with complaints of on and off chest discomfort with uneasy feeling in the chest over the last 2-3 days along with exertional shortness of breath. Patient denies any dizziness or passing out episodes but has felt like his heart is not beating regularly. He gives history of sleep apnea and admits to not always being compliant with CPAP use. He claims that recently they came back from a road trip to [facility] and over the last 3 days he has not felt good. Denies any swelling of legs or any fever or chills or any recent heat or cold intolerance. He denies any history of bleeding per rectum or black stools. He denies history of cigarette smoking or alcohol abuse. He is and lives with his . He denies any family history of early age coronary artery disease. He has seen Dr. Reddy in the past and had a stress test more than 3 years ago which was negative for ischemia. Physical Exam Vital Signs: Temp Pulse Resp BP Pulse Ox 97.6 F 98 17 122/68 97 04/18/18 14:11 04/18/18 14:11 04/18/18 14:11 04/18/18 14:11 04/18/18 14:11 Intake & Output 04/17/18 04/18/18 04/19/18 06:59 06:59 06:59 Intake Total 1284 1600 Balance 1284 1600 Weight 139.5 kg 139.5 kg General appearance: PRESENT: no acute distress Head exam: PRESENT: atraumatic Eye exam: PRESENT: PERRLA Mouth exam: PRESENT: moist Neck exam: ABSENT: carotid bruit, JVD, lymphadenopathy, thyromegaly Respiratory exam: PRESENT: clear to auscultation lazara. ABSENT: rales, rhonchi, wheezes Cardiovascular exam: PRESENT: RRR. ABSENT: diastolic murmur, rubs, systolic murmur GI/Abdominal exam: PRESENT: normal bowel sounds, soft. ABSENT: distended, guarding, mass, organolmegaly, rebound, tenderness Neurological exam: PRESENT: alert, awake, oriented to person, oriented to place , oriented to time, oriented to situation, CN II-XII grossly intact. ABSENT: motor sensory deficit Psychiatric exam: PRESENT: appropriate affect, normal mood. ABSENT: homicidal ideation, suicidal ideation Results Laboratory Results: 04/16/18 03:56 04/16/18 03:56 04/15/18 04/16/18 04/17/18 19:09 03:50 06:43 CK-MB (CK-2) 1.41 Troponin I < 0.012 < 0.012 Impressions: Chest X-Ray 04/15/18 14:16 IMPRESSION: NO ACUTE RADIOGRAPHIC FINDING IN THE CHEST. Qualifiers - * PATIENT BEING DISCHARGED WITH ANY OF THE FOLLOWING DIAGNOSIS: No VTE patient discharged on overlapping Therapy?: Yes
== END 2018-04-18 15:00 | disposition home or self-care (01) | DRG 309 ==
LOC: ER 13:35 → INTOOBSV 16:21 → EH 16:21 → OBSVTOIN 16:21 → 5 18:25
PROVIDERS: ADMIT Internal Medicine; ATTEND Internal Medicine
DX: I48.2 Chronic atrial fibrillation (principal); Z68.41 Body mass index [BMI] 40.0-44.9, adult; I10 Essential (primary) hypertension; E66.01 Morbid (severe) obesity due to excess calories; E11.9 Type 2 diabetes mellitus without complications; G47.33 Obstructive sleep apnea (adult) (pediatric); J44.9 Chronic obstructive pulmonary disease, unspecified; E78.00 Pure hypercholesterolemia, unspecified; I49.3 Ventricular premature depolarization; Z79.82 Long term (current) use of aspirin; Z79.84 Long term (current) use of oral hypoglycemic drugs; Z79.899 Other long term (current) drug therapy; Z23 Encounter for immunization; Z79.01 Long term (current) use of anticoagulants; Z87.442 Personal history of urinary calculi
CPT/HCPCS: 36415; 71045; 78452; 80053; 80061; 80307; 81001; 82550; 82553; 82962; 83036; 83735; 83880; 84443; 84481; 84484; 85025; 85027; 90471; 90686; 93005; 93010; 93017; 93306; 99285; A9500; G0008; J1650; J2785; J3490; Q9969